=== PATIENT | male | born 1995 | race African-American/Black ===

== ENCOUNTER 2018-11-16 18:38 | Emergency (ER) | payer OTHER ==
[~2018-11-16] VITALS: Ht 182.9 cm; Wt 74.8 kg
[~2018-11-16 18:38] MED LIST: BACITRACIN15 GM TOPIC
--- NOTE | 2018-11-16 19:07 | NUR ---
ED Nurse Note: pt presents from home with c/o cough, congestion with dyspnea started today. pt with family member with similar symptoms. pt does relates 2 episodes of vomiting today. coarse non productive cough noted during eval by md. urine voided and held at bs. pt aware of plan for hhn and reeval. a/ox4 no accessory muscle use and speaks full sentences well
[2018-11-16] MEDS ORDERED: NKM (19:11)
[2018-11-16 19:16] VITALS: BP 139/88
[2018-11-16] MEDS: Ipratropium 0.02% Inh Soln 2.5ml UD HHN SCH ×2 (19:32→19:43)
[2018-11-16] MEDS: Albuterol ud Inhalation HHN SCH ×2 (19:32→19:43)
[2018-11-16] MEDS ORDERED: ALBUTEROL SULF8.5 GM INH (20:14)
[2018-11-16] MEDS ORDERED: ONDANSETRON ODT4 MG BC (20:14)
[2018-11-16] MEDS ORDERED: RANITIDINE HCL150 MG ORAL (20:14)
[2018-11-16] MEDS ORDERED: PREDNISONE20 MG ORAL (20:14)
--- NOTE | 2018-11-16 20:36 | Emergency Room Report ---
History of Present Illness General Chief Complaint: Vomiting Source: Patient, Family Member Present Illness HPI 23-year-old male presents ED for evaluation. Complaining of runny nose, cough, congestion, sore throat. Started yesterday. Mother has similar symptoms. Afebrile in triage. Cough is productive with yellowish phlegm. Also states he vomited twice. Denies any abdominal pain. Denies any diarrhea. Denies recent travel. No other aggravating relieving factors. Denies any other associated symptoms Allergies: Coded Allergies: CLARITHROMYCIN (Verified Allergy, Unknown, 11/17/15) PENICILLINS (Verified Allergy, Unknown, 11/17/15) Uncoded Allergies: Mycin family (Allergy, Unknown, 11/17/15) Patient History Past Medical History: asthma Past Surgical History: none Pertinent Family History: none Social History: Denies: smoking, alcohol use, drug use Immunizations: UTD Reviewed Nursing Documentation: PMH: Agreed; PSxH: Agreed Nursing Documentation-PMH Past Medical History: No History, Except For Hx Asthma: Yes Review of Systems All Other Systems: negative except mentioned in HPI Physical Exam Vital Signs Date Time Temp Pulse Resp B/P (MAP) Pulse Ox O2 Delivery O2 Flow Rate FiO2 11/16/18 18:42 98.2 103 16 139/88 (105) 98 Room Air 11/16/18 19:15 21 Sp02 EP Interpretation: reviewed, normal General Appearance: no apparent distress, alert, GCS 15, non-toxic Head: normocephalic, atraumatic Eyes: bilateral eye normal inspection, bilateral eye PERRL ENT: hearing grossly normal, normal pharynx, no angioedema, normal voice Neck: full range of motion, supple/symm/no masses Respiratory: chest non-tender, normal breath sounds, speaking full sentences, wheezing Cardiovascular #1: regular rate, rhythm, no edema Cardiovascular #2: 2+ carotid (R), 2+ carotid (L), 2+ radial (R), 2+ radial (L) , 2+ dorsalis pedis (R), 2+ dorsalis pedis (L) Gastrointestinal: normal bowel sounds, non tender, soft, non-distended, no guarding, no rebound Rectal: deferred Genitourinary: normal inspection, no CVA tenderness Musculoskeletal: back normal, gait/station normal, normal range of motion, non- tender Neurologic: alert, oriented x3, responsive, motor strength/tone normal, sensory intact, speech normal Psychiatric: judgement/insight normal, memory normal, mood/affect normal, no suicidal/homicidal ideation Reflexes: 3+ bicep (R), 3+ bicep (L), 3+ tricep (R), 3+ tricep (L), 3+ knee (R) , 3+ knee (L) Lymphatic: no adenopathy Medical Decision Making Diagnostic Impression: Primary Impression: Upper respiratory infection Qualified Codes: J06.9 - Acute upper respiratory infection, unspecified ER Course Hospital Course 23-year-old male presents to ED complaining of cough, vomiting Differential diagnoses include: URI, bronchitis, asthma/COPD, pneumonia Clinical course Patient placed on stretcher. After initial history and physical I ordered prednisone, CXR and nebulizer treatment. chest X-ray shows no focal consolidation or other acute process upon reassessment patient states cough and symptoms have improved. She is viral and self-limited. Discussed findings with patient. Will discharge with prescriptions. Does not have a PMD. Will provide referrals Diagnosis - URI Stable and discharged home with prescriptions for Rx albuterol, prednisone, zofran, zantac. Instructed to followup with PMD. Return to ED if symptoms recur or worsen Chest X-Ray Diagnostic Results Chest X-Ray Diagnostic Results : Chest X-Ray Ordered: Yes # of Views/Limited/Complete: 1 View Indication: Shortness of Breath EP Interpretation: Yes Interpretation: no consolidation, no effusion, no pneumothorax, no acute cardiopulmonary disease Impression: No acute disease Electronically Signed by: Electronically signed by Heron Daniel MD Last Vital Signs Date Time Temp Pulse Resp B/P (MAP) Pulse Ox O2 Delivery O2 Flow Rate FiO2 11/16/18 19:45 90 20 100 Room Air 21 88 18 100 11/16/18 19:16 98.2 139/88 Status: improved Disposition: HOME, SELF-CARE Condition: Stable Scripts Ranitidine Hcl* (ZANTAC*) 150 Mg Tablet 150 MG ORAL TWICE A DAY, #30 TAB Prov: Heron Daniel MD 11/16/18 Ondansetron Odt* (ZOFRAN ODT*) 4 Mg Tab.rapdis 4 MG BC EVERY 6 HOURS PRN for Nausea & Vomiting, #20 TAB 0 Refills Prov: Heron Daniel MD 11/16/18 Prednisone* (PREDNISONE*) 20 Mg Tablet 40 MG ORAL DAILY, #10 TAB Prov: Heron Daniel MD 11/16/18 Albuterol Sulfate* (ALBUTEROL SULFATE MDI*) 8.5 Gm Hfa.aer.ad 2 PUFF INH Q6H, #1 EA 0 Refills Prov: Heron Daniel MD 11/16/18 Referrals: NOT CHOSEN IPA/,REFERRING (PCP) [facility] Patient Instructions: Upper Respiratory Infection, Adult, [id number] Heron Daniel MD Nov 16, 2018 20:36
[2018-11-16 20:40] VITALS: BP 139/88
--- NOTE | 2018-11-16 20:40 | NUR ---
ER DISCHARGE NOTE: Patient is cleared to be discharged per ERMD, pt is aox4, on room air, with stable vital signs. accompanied by family member. pt was given dc and prescription instructions, pt was able to verbalize understanding, pt id band removed. pt is able to ambulate with steady gait. pt took all belongings.
--- NOTE | 2018-11-17 10:42 | Diagnostic Imaging Report ---
Indication: Cough Comparison: None A single view chest radiograph was obtained. Findings: Cardiomediastinal appearance is within normal limits for age. The lungs are clear. Pulmonary vascularity is appropriate. The diaphragmatic contour is smooth and costophrenic angles are sharp. No pleural effusions are identified. The bones are unremarkable. Impression: No acute findings
== END 2018-11-16 20:40 | disposition home or self-care (01) ==
LOC: EMR 19:01
DX: J06.9 Acute upper respiratory infection, unspecified (principal); J45.909 Unspecified asthma, uncomplicated; Z88.1 Allergy status to other antibiotic agents; Z88.0 Allergy status to penicillin
CPT/HCPCS: 71045; 94640; 94664; 99284; J7512